=== PATIENT | male | born 1985 | race Caucasian/White ===

== ENCOUNTER 2017-10-27 20:45 | Emergency (ER) | payer OTHER ==
[~2017-10-27] VITALS: Ht 170.2 cm; Wt 68.0 kg
[2017-10-27 22:29] LABS: HEMATOCRIT 44.2 % (42.0-52.0); HEMOGLOBIN 15.2 gm/dL (14.0-18.0); MCHC 34.3 g/dL (28.0-37.0); MCV 93.1 fL (80.0-100.0); RBC 4.75 mil/uL (4.50-6.00); RDW 12.9 % (10.5-14.5); WBC 8.8 thou/uL (4.0-11.0)
[2017-10-27 22:30] LABS: URINE BILIRUBIN NEGATIVE (Negative); URINE BLOOD NEGATIVE (Negative); URINE CLARITY CLEAR; URINE COLOR YELLOW; URINE GLUCOSE-RANDOM* NEGATIVE (Negative); URINE KETONES NEGATIVE (Negative); URINE LEUKOCYTES-REFLEX NEGATIVE (Negative); URINE NITRITE-REFLEX NEGATIVE (Negative); URINE PROTEIN (DIPSTICK) NEGATIVE (Negative); URINE SPECIFIC GRAVITY >= 1.030 (1.005-1.035); URINE UROBILINOGEN 0.2 E.U./dl (0.2-1.0)
[2017-10-27 22:36] LABS: ANION GAP 6 mmol/L (7-16); BUN 7 mg/dL (7-18); CALCIUM 9.4 mg/dL (8.5-10.1); CHLORIDE 104 mmol/L (98-107); CO2 29 mmol/L (21-32); CREATININE 1.2 mg/dL (0.7-1.3); GLUCOSE 87 mg/dL (74-106); POTASSIUM 3.6 mmol/L (3.5-5.1); SODIUM 139 mmol/L (136-145)
[2017-10-27 22:38] LABS: AMP/METHAMP POSITIVE (Negative); BARBITURATES Negative (Negative); BENZODIAZEPINES Negative (Negative); COCAINE Negative (Negative); METHADONE Negative (Negative); OPIATES Negative (Negative); PCP Negative (Negative)
[2017-10-27 22:41] LABS: SALICYLATE 3.7 mg/dL (2.8-20.0)
[2017-10-27 23:35] VITALS: BP 130/95
== END 2017-10-27 23:40 | disposition home or self-care (01) ==
LOC: ER 20:45
PROVIDERS: Physician Assistant
DX: F15.23 Other stimulant dependence with withdrawal (principal); F12.10 Cannabis abuse, uncomplicated; F32.9 Major depressive disorder, single episode, unspecified; F41.9 Anxiety disorder, unspecified; Z88.0 Allergy status to penicillin